=== PATIENT | female | born 2000 | race African-American/Black ===

== ENCOUNTER 2019-07-14 15:08 | Emergency (ER) | payer OTHER ==
[2019-07-14] MEDS ORDERED: ACETAMINOPHEN 325 MG TAB ONE (16:14)
[2019-07-14 16:54] LABS: RAPID GROUP A STREP NEGATIVE (NEGATIVE)
== END 2019-07-14 17:26 | disposition home or self-care (01) ==
LOC: EDH 15:08
DX: J01.10 Acute frontal sinusitis, unspecified (principal); R50.81 Fever presenting with conditions classified elsewhere
CPT/HCPCS: 87804; 87880

== ENCOUNTER 2019-10-01 17:42 | Emergency (ER) | payer OTHER ==
[2019-10-01] MEDS ORDERED: IBUPROFEN 600 MG TABLET ONE (18:28)
[2019-10-01] MEDS ORDERED: DEXAMETHASONE SOD PHOSPHATE 10MG/ML 1ML VIAL ONE (18:28)
== END 2019-10-01 19:02 | disposition home or self-care (01) ==
LOC: EDH 17:42
DX: J02.8 Acute pharyngitis due to other specified organisms (principal); B97.89 Other viral agents as the cause of diseases classified elsewhere
CPT/HCPCS: 87880; 96372; 99283; J1100